=== PATIENT | male | born 1995 | race Caucasian/White ===

== ENCOUNTER 2017-05-16 22:48 | Emergency (ER) | payer BC ==
[~2017-05-16] VITALS: Ht 182.9 cm; Wt 97.2 kg
[2017-05-17] MEDS ORDERED: NORCO 5/3251 TABLET PO (00:22)
[2017-05-17 00:27] VITALS: BP 141/64
== END 2017-05-17 00:28 | disposition home or self-care (01) ==
LOC: EME 22:48
DX: S42.022A Displaced fracture of shaft of left clavicle, initial encounter for closed fracture (principal); W00.0XXA Fall on same level due to ice and snow, initial encounter; Y93.22 Activity, ice hockey
CPT/HCPCS: 73030; 99281; 99284